=== PATIENT | male | born 1945 | race Caucasian/White ===

== ENCOUNTER → 2018-09-04 | Outpatient (REF) | payer MEDICARE, OTHER ==
[~2018-09-04] MED LIST: ALL DAY ALLG10 MG PO; AMOXICILLIN/CL875 MG OR; ASPIRIN EC LOW81 MG PO; CRESTOR20 MG PO; DIOVAN80 MG PO; LANTUS100 UNIT/M SC; LOVAZA1 GM PO; METOPROL TAR25 M1 PO; MULTIVITAMI1 PO; NEXIUM20 M1 PO; NIASPAN500 MG PO; PRISTIQ50 MG PO; TANZEUM50 MG SC; VICTOZA18 MG/3 ML SC; VITA D-1000 OR; VITAMIN D5000 UNIT PO
[2018-09-04 11:08] LABS: HEMATOCRIT 46.7 % (39.0-50.0); HEMOGLOBIN 15.5 g/dl (14.0-18.0); IMMATURE GRANULOCYTES 0.1 % (0.0-5.0); MEAN CELL VOLUME 89.8 fL CALC (80.0-100.0); MEAN CORPUSCULAR HGB 29.8 pG CALC (26.0-32.0); MEAN CORPUSCULAR HGB CONC 33.2 g/L CALC (32.0-36.0); NEUT# 2.45 thou/uL (1.82-7.42); RED BLOOD COUNT 5.2 mill/uL (4.70-6.10); RED CELL DISTRI WIDTH 13.4 % (11.5-15.5)
== END | disposition home or self-care (01) ==
LOC: LAB 10:22
PROVIDERS: ATTEND Internal Medicine Geriatric Medicine
DX: J20.9 Acute bronchitis, unspecified (principal)

== ENCOUNTER 2018-10-07 16:52 | Observation (INO) | payer MEDICARE, OTHER ==
[~2018-10-07] VITALS: Ht 182.9 cm; Wt 99.4 kg
--- NOTE | 2018-10-07 17:04 | NUR ---
PT TO ROOM VIA EMS
[2018-10-07 17:16] LABS: HEMATOCRIT 46.9 % (39.0-50.0); HEMOGLOBIN 15.5 g/dl (14.0-18.0); IMMATURE GRANULOCYTES 0.5 % (0.0-5.0); MEAN CELL VOLUME 88.8 fL CALC (80.0-100.0); MEAN CORPUSCULAR HGB 29.4 pG CALC (26.0-32.0); NEUT# 7.08 thou/uL (1.82-7.42); RED BLOOD COUNT 5.28 mill/uL (4.70-6.10); RED CELL DISTRI WIDTH 13.5 % (11.5-15.5)
[2018-10-07 17:36] LABS: ANION GAP 18 (6-22 (CALC)); BUN 30 mg/dL (8-23); BUN/CREATININE RATIO 17 (12-20 (CALC)); CARBON DIOXIDE 21 mmol/l (22-30); CHLORIDE 106 mmol/l (95-108); CREATININE 1.7 mg/dL (0.7-1.3); GFR 40 ML/MIN (>=60 (CALC)); GFR FOR AFR.AMER. 48 ML/MIN (>=60 (CALC)); POTASSIUM 4.4 mmol/l (3.5-5.1); SODIUM 141 mmol/l (137-146)
--- NOTE | 2018-10-07 17:41 | NUR ---
PT STATES HAS BEEN HAVING SOME COUGHING AND NOT FEELING GOOD
[2018-10-07] MEDS ORDERED: ALLOPURINOL100 MG PO (17:55)
[2018-10-07] MEDS ORDERED: CLOPIDOGREL75 MG PO (17:55)
[2018-10-07] MEDS ORDERED: VICTOZA18 MG/3 ML SC (17:56)
[2018-10-07] MEDS ORDERED: APIDRA100 UNIT/M SC (17:58)
--- NOTE | 2018-10-07 18:12 | NUR ---
DAUGHTER STATES THAT PT WAS SITTING IN CHAIR AND "PASSED OUT", PT ALSO STATES THAT HE WAS FEELING WEAK AND VOMITED AND HAD A "BOUT OF DIARRHEA". EYES ROLLED BACK FOR APPROX 5 SECONDS DAUGHTER STATES. AT THIS TIME PT STATES IS FEELING MUCH BETTER.
--- NOTE | 2018-10-07 18:25 | NUR ---
PT REPORT GIVEN TO MED SURG FOR CONTINUATION OF CARE.
--- NOTE | 2018-10-07 18:38 | NUR ---
PT TAKEN TO FLOOR PER STRETCHER, PT ALERT/ORIENTED X3.
[2018-10-07 18:55] VITALS: BP 151/72
--- NOTE | 2018-10-07 19:06 | NUR ---
RECEIVED REPORT FROM NURSE RUBIN, PATIENT TRANSPORTED VIA WHEELCHAIR, DX SYNCOPE, PATIENT SETTLED IN BED, EDUCATED CREDIT RISK MANAGER LIGHT SYSTEM.
--- NOTE | 2018-10-07 19:40 | NUR ---
PATIENT ALERT AND ORIENTED ABLE TO MAKE NEEDS KNOWN, DENIES PAIN OR DISCOMFORT ON TELE SR 97, WITH PRODUCTIVE COUGHT THICK YELLOW IN COLOR, LAST BM 10/07. WITH AN ONGOING IVF OF NS @ 1000CC/HR, ON LEFT FOREARM, CALL LIGHT AT REACH.
[2018-10-07 19:56] LABS: URINE BILIRUBIN - DIPSTICK NEGATIVE (NEGATIVE); URINE BLOOD DIPSTICK NEGATIVE (NEGATIVE); URINE COLOR YELLOW; URINE GLUCOSE - DIPSTICK NEGATIVE (NEGATIVE); URINE KETONE NEGATIVE (NEGATIVE); URINE LEUK ESTERASE NEGATIVE (NEGATIVE); URINE NITRITE - DIPSTICK NEGATIVE (Negative); URINE PH 5.5 (4.5-8.0); URINE PROTEIN - DIPSTICK TRACE mg/dL (NEG-TRACE); URINE SPECIFIC GRAVITY 1.015; URINE UROBILINOGEN - DIPSTICK 0.2 E.U./dL (0.2)
--- NOTE | 2018-10-07 20:52 | NUR ---
RECEIVED A PHONE CALL @ 2035 FROM [facility]) ABOUT CRITICALLY HIGH LACTIC ACID 2.1, CALLED DR. ROSARIO INFORMED ABOUT THE TREND, NO NEW ORDERS MADE AT THIS TIME.
--- NOTE | 2018-10-08 | NUR ---
PATIENT RESTING IN BED, NO DISCOMFORTS NOTED AT THIS TIME, ON TELE SR 98. CALL LIGHT WITHIN REACH.
[2018-10-08 00:25] VITALS: BP 140/70
[2018-10-08 04:30] VITALS: BP 132/75
[2018-10-08 05:31] LABS: HEMATOCRIT 41.5 % (39.0-50.0); HEMOGLOBIN 13.8 g/dl (14.0-18.0); IMMATURE GRANULOCYTES 0.2 % (0.0-5.0); MEAN CELL VOLUME 88.9 fL CALC (80.0-100.0); MEAN CORPUSCULAR HGB 29.6 pG CALC (26.0-32.0); MEAN CORPUSCULAR HGB CONC 33.3 g/L CALC (32.0-36.0); NEUT# 4.54 thou/uL (1.82-7.42); RED BLOOD COUNT 4.67 mill/uL (4.70-6.10); RED CELL DISTRI WIDTH 13.5 % (11.5-15.5)
[2018-10-08 06:04] LABS: ALBUMIN 3.7 g/dL (3.2-5.0); BILIRUBIN, TOTAL 0.7 mg/dL (0.0-1.4); CREATININE 1.6 mg/dL (0.7-1.3); POTASSIUM 4.2 mmol/l (3.5-5.1); TOTAL PROTEIN 6.6 g/dL (6.3-8.2)
--- NOTE | 2018-10-08 06:30 | NUR ---
PATIENT SENT TO RADIOLOGY FOR CXR 2V VIA WHEELCHAIR.
--- NOTE | 2018-10-08 06:50 | NUR ---
PATIENT BACK IN ROOM, SETTLED BACK IN BED.
--- NOTE | 2018-10-08 07:15 | NUR ---
REPORT RECEIVED FROM EXTRACTIONS TECHNOLOGIST; PT LAYING IN BED WITH HOB ELEVATED; APPEARS TO BE SLEEPING; RESP EVEN AND UNLABORED; WILL CONTINUE TO MONITOR.
--- NOTE | 2018-10-08 08:30 | NUR ---
DR ROSARIO AT BEDSIDE TO DISCUSS POC
[2018-10-08] MEDS ORDERED: LEVAQUIN750 MG PO (08:43)
--- NOTE | 2018-10-08 11:01 | NUR ---
PT SITTING UP IN BED, RESP EVEN AND UNLABORED; DRESSED READY TO GO HOME; DR ROSARIO AWARE OF UNFINISH D/C PROCESS; PT INFORM OF SUCH; STATES "I WILL JUST SIT HERE AND WAIT" VERY PLEASANT;
--- NOTE | 2018-10-08 12:14 | NUR ---
D/C INSTRUCTIONS GIVEN, PT VERBALIZE UNDERSTANDING; DECLINE W/C
--- NOTE | 2018-10-08 12:16 | NUR ---
Discharge instructions given. Patient verbalizes understanding of same. Discharged in stable condition via Ambulatory to Home with family. All belongings sent with pt.
== END 2018-10-08 12:16 | disposition home or self-care (01) ==
LOC: ED 16:52 → ED-I 17:05 → ED 17:05 → ED-I 17:50 → MS2 18:01 → ED 18:01 → MS2 18:01
PROVIDERS: Family Medicine; ADMIT Internal Medicine Geriatric Medicine; ATTEND Internal Medicine Geriatric Medicine
DX: E86.0 Dehydration (principal); J20.9 Acute bronchitis, unspecified; J44.0 Chronic obstructive pulmonary disease with (acute) lower respiratory infection; I12.9 Hypertensive chronic kidney disease with stage 1 through stage 4 chronic kidney disease, or unspecified chronic kidney disease; E11.22 Type 2 diabetes mellitus with diabetic chronic kidney disease; N18.9 Chronic kidney disease, unspecified; M19.90 Unspecified osteoarthritis, unspecified site; E11.69 Type 2 diabetes mellitus with other specified complication; E78.5 Hyperlipidemia, unspecified; I25.10 Atherosclerotic heart disease of native coronary artery without angina pectoris; E03.9 Hypothyroidism, unspecified; I25.2 Old myocardial infarction; Z79.4 Long term (current) use of insulin; Z95.1 Presence of aortocoronary bypass graft; R55 Syncope and collapse; R53.1 Weakness; R42 Dizziness and giddiness; R11.2 Nausea with vomiting, unspecified; R19.7 Diarrhea, unspecified

== ENCOUNTER 2024-01-05 15:12 | Observation (INO) | payer MEDICARE, OTHER ==
[~2024-01-05] VITALS: Ht 182.9 cm; Wt 88.1 kg
[2024-01-05] VITALS (21 sets, daily range): BP systolic 116–154; BP diastolic 66–88
[~2024-01-05 15:12] MED LIST changes: +ALLOPURINOL100 MG PO; +APIDRA100 UNIT/M SC; +CLOPIDOGREL75 MG PO; +LEVAQUIN750 MG PO
[2024-01-05 15:35] LABS: BASO% 0.4 % (0-3); EOS% 2.4 % (0-8); HEMATOCRIT 49.5 % (39.0-50.0); IMMATURE GRANULOCYTES 0.1 % (0.0-5.0); LYMPH% 10.1 % (15-41); MEAN CORPUSCULAR HGB 29.1 pG CALC (26.0-32.0); MEAN CORPUSCULAR HGB CONC 32.3 g/dL CAL (32.0-36.0); MONO% 11.2 % (2-13); NEUT# 7.51 thou/uL (1.82-7.42); NEUT% 75.8 % (42-76); RED BLOOD COUNT 5.5 mill/uL (4.70-6.10); RED CELL DISTRI WIDTH 12.9 % (11.5-15.5)
[2024-01-05 15:44] LABS: ALKALINE PHOSPHATASE 55 u/l (38-126); BUN 19 mg/dL (8-23); BUN/CREATININE RATIO 12 (12-20 (CALC)); CARBON DIOXIDE 24 mmol/l (22-30); CPK 53 u/l (55-170); CREATININE 1.6 mg/dL (0.7-1.3); ESTIMATED GFR 44 ML/MIN (>=90 (CALC)); SGOT/AST 37 u/l (19-48)
[2024-01-05 15:47] LABS: ANION GAP 10 (6-22 (CALC)); CHLORIDE 108 mmol/l (95-108); POTASSIUM 4.6 mmol/l (3.5-5.1); SODIUM 137 mmol/l (137-146)
[2024-01-05 15:48] LABS: TOTAL PROTEIN 7.8 g/dL (6.3-8.2)
[2024-01-05 15:49] LABS: BILIRUBIN, TOTAL 1.1 mg/dL (0.2-1.3)
[2024-01-05 16:40] LABS: URINE BILIRUBIN - DIPSTICK Negative (NEGATIVE); URINE BLOOD DIPSTICK Negative (NEGATIVE); URINE GLUCOSE - DIPSTICK >=1000 mg/dL (NEGATIVE); URINE KETONE Trace mg/dL (NEGATIVE); URINE LEUK ESTERASE Negative (NEGATIVE); URINE NITRITE - DIPSTICK Negative (Negative); URINE PROTEIN - DIPSTICK Trace mg/dL (NEG-TRACE); URINE SPECIFIC GRAVITY 1.015
[2024-01-05 16:43] LABS: URINE COLOR Yellow
[2024-01-05] MEDS ORDERED: SODIUM CHLORIDE 0.9% 1,000 ML IV ONE (17:10)
[2024-01-05] MEDS ORDERED: DOXYCYCLINE HYCLATE 100 MG in SODIUM CHLORIDE 0.9% 100 ML IV ONE (17:55)
[2024-01-05] MEDS ORDERED: SODIUM CHLORIDE 0.9% 1,000 ML IV PRN (18:10)
[2024-01-05] MEDS ORDERED: ACETAMINOPHEN 325 MG/TAB PO PRN (18:10)
[2024-01-05] MEDS ORDERED: MAGNESIUM HYDROXIDE 30 ML UDC PO PRN (18:10)
[2024-01-05] MEDS ORDERED: IPRATROPIUM-Albuterol 0.5MG-2.5MG/3 ML NEB SCH (19:00)
[2024-01-05] MEDS ORDERED: TRULICITY0.75 MG/0. (19:10)
[2024-01-05] MEDS ORDERED: ENOXAPARIN SODIUM 40 MG/0.4 ML SYR SC SCH (21:00)
[2024-01-05] MEDS ORDERED: INSULIN LISPRO 100 UNITS/ML ML SC SCH (21:00)
[2024-01-06 00:32] VITALS: BP 122/65
[2024-01-06 04:33] VITALS: BP 119/76
[2024-01-06 06:20] LABS: BASO% 0.6 % (0-3); EOS% 1.8 % (0-8); HEMATOCRIT 45.1 % (39.0-50.0); IMMATURE GRANULOCYTES 0.1 % (0.0-5.0); LYMPH% 20.3 % (15-41); MEAN CORPUSCULAR HGB 29.9 pG CALC (26.0-32.0); MEAN CORPUSCULAR HGB CONC 33.3 g/dL CAL (32.0-36.0); MONO% 18.1 % (2-13); NEUT# 4.05 thou/uL (1.82-7.42); NEUT% 59.1 % (42-76); RED BLOOD COUNT 5.01 mill/uL (4.70-6.10); RED CELL DISTRI WIDTH 12.9 % (11.5-15.5)
[2024-01-06 06:31] LABS: ALBUMIN 3.4 g/dL (3.2-5.0); BILIRUBIN, TOTAL 0.9 mg/dL (0.2-1.3); CHOLESTEROL HDL RATIO 4.2 (<4.4 (CALC)); CREATININE 1.3 mg/dL (0.7-1.3); MAGNESIUM 1.7 mg/dL (1.6-2.3); POTASSIUM 3.9 mmol/l (3.5-5.1); TOTAL PROTEIN 6.7 g/dL (6.3-8.2)
[2024-01-06 06:55] VITALS: BP 127/64
[2024-01-06] MEDS ORDERED: PANTOPRAZOLE SODIUM Sesquihydr 40 MG/TAB PO SCH (09:00)
[2024-01-06] MEDS ORDERED: ALLOPURINOL 100 MG/TAB PO SCH (09:00)
[2024-01-06] MEDS ORDERED: ESCITALOPRAM 10 MG/TAB PO SCH (09:00)
[2024-01-06] MEDS ORDERED: FLUTICASONE PROPIONATE (Nasal) 50MCG/SPRAY INH SCH (09:00)
[2024-01-06] MEDS ORDERED: AZITHROMYCIN 250 MG/TAB PO SCH (09:00)
[2024-01-06] MEDS ORDERED: INSULIN DETEMIR 100 UNITS/ML SC SCH (09:00)
[2024-01-06] MEDS ORDERED: METOPROLOL SUCCINATE 25 MG/TAB-TOPROL XL PO SCH (09:00)
[2024-01-06 11:02] VITALS: BP 128/74
[2024-01-06] MEDS ORDERED: AMOX/K CLAV875 M1 PO (12:31)
== END 2024-01-06 14:53 | disposition home or self-care (01) ==
LOC: ED 15:12 → ED-I 17:20 → ED 17:54 → MS2 17:55
PROVIDERS: Nurse Practitioner; ADMIT Student in an Organized Health Care Education/Training Program; ATTEND Student in an Organized Health Care Education/Training Program
DX: E86.0 Dehydration (principal); R91.8 Other nonspecific abnormal finding of lung field; R53.1 Weakness; N17.9 Acute kidney failure, unspecified; I12.9 Hypertensive chronic kidney disease with stage 1 through stage 4 chronic kidney disease, or unspecified chronic kidney disease; E11.22 Type 2 diabetes mellitus with diabetic chronic kidney disease; N18.9 Chronic kidney disease, unspecified; E11.69 Type 2 diabetes mellitus with other specified complication; E78.2 Mixed hyperlipidemia; I25.10 Atherosclerotic heart disease of native coronary artery without angina pectoris; E78.5 Hyperlipidemia, unspecified; I25.2 Old myocardial infarction; K21.9 Gastro-esophageal reflux disease without esophagitis; Z95.1 Presence of aortocoronary bypass graft; Z95.5 Presence of coronary angioplasty implant and graft; Z79.4 Long term (current) use of insulin
CPT/HCPCS: J1650

== ENCOUNTER 2024-02-23 10:37 | Emergency (ER) | payer MEDICARE, OTHER ==
[~2024-02-23] VITALS: Ht 182.9 cm; Wt 76.2 kg
[2024-02-23] VITALS (15 sets, daily range): BP systolic 130–160; BP diastolic 78–105
[~2024-02-23 10:37] MED LIST changes: +AMOX/K CLAV875 M1 PO; +TRULICITY0.75 MG/0.
[2024-02-23] MEDS ORDERED: ESCITALOPRAM OX10 MG PO (12:06)
[2024-02-23] MEDS ORDERED: FENOFIBRATE54 MG PO (12:08)
[2024-02-23] MEDS ORDERED: ASPIRINCHW 81MG PO (12:08)
[2024-02-23] MEDS ORDERED: PLAVIX75 MG PO (12:09)
[2024-02-23] MEDS ORDERED: HUMALOG100 UNIT/M SC (12:12)
[2024-02-23] MEDS ORDERED: TOUJEO SOL300 UNIT/M (12:13)
[2024-02-23 12:14] LABS: BASO% 0.6 % (0-3); EOS% 6.2 % (0-8); HEMATOCRIT 53.7 % (39.0-50.0); HEMOGLOBIN 17.5 g/dl (14.0-18.0); IMMATURE GRANULOCYTES 0.1 % (0.0-5.0); LYMPH% 28.4 % (15-41); MEAN CELL VOLUME 90.9 fL CALC (80.0-100.0); MEAN CORPUSCULAR HGB 29.6 pG CALC (26.0-32.0); MEAN CORPUSCULAR HGB CONC 32.6 g/dL CAL (32.0-36.0); MONO% 10.3 % (2-13); NEUT# 5.33 thou/uL (1.82-7.42); NEUT% 54.4 % (42-76); RED BLOOD COUNT 5.91 mill/uL (4.70-6.10); RED CELL DISTRI WIDTH 13.7 % (11.5-15.5)
[2024-02-23] MEDS ORDERED: EZETIMIBE10 MG (12:14)
[2024-02-23] MEDS ORDERED: FAMOTIDINE 10MG/ML 2ML SDV IV ONE (12:25)
[2024-02-23 12:30] LABS: ALBUMIN 4.9 g/dL (3.2-5.0); ALKALINE PHOSPHATASE 55 u/l (38-126); ANION GAP 15 (6-22 (CALC)); BUN 23 mg/dL (8-23); BUN/CREATININE RATIO 15 (12-20 (CALC)); CARBON DIOXIDE 27 mmol/l (22-30); CHLORIDE 106 mmol/l (95-108); CREATININE 1.5 mg/dL (0.7-1.3); ESTIMATED GFR 47 ML/MIN (>=90 (CALC)); LIPASE 307 u/l (23-300); POTASSIUM 4.1 mmol/l (3.5-5.1); SGOT/AST 34 u/l (19-48); SODIUM 144 mmol/l (137-146); TOTAL PROTEIN 10.1 g/dL (6.3-8.2)
[2024-02-23] MEDS ORDERED: SODIUM CHLORIDE 0.9% 1,000 ML IV ONE (13:50)
[2024-02-23] MEDS ORDERED: CARAFATE PO (15:07)
== END 2024-02-23 15:41 | disposition home or self-care (01) ==
LOC: ED 10:37
PROVIDERS: Emergency Medicine
DX: R10.13 Epigastric pain (principal); I10 Essential (primary) hypertension; E11.9 Type 2 diabetes mellitus without complications; I25.10 Atherosclerotic heart disease of native coronary artery without angina pectoris; Z95.1 Presence of aortocoronary bypass graft; Z95.5 Presence of coronary angioplasty implant and graft; K44.9 Diaphragmatic hernia without obstruction or gangrene; Z79.4 Long term (current) use of insulin
CPT/HCPCS: Q9967

== ENCOUNTER 2024-06-06 12:10 | Inpatient (IN) | payer MEDICARE, OTHER ==
[~2024-06-06 12:10] MED LIST changes: +ASPIRIN LOW DOS81 M1 PO; +ASPIRINCHW 81MG PO; +CARAFATE PO; +ESCITALOPRAM OX10 MG PO; +EZETIMIBE10 MG; +FENOFIBRATE54 MG PO; +HUMALOG100 UNIT/M SC; +PANTOPRAZOLE SO40 M1 PO; +PLAVIX75 MG PO; +TOUJEO SOL300 UNIT/M
[2024-06-06] MEDS ORDERED: SILDENAFIL (12:22)
[2024-06-10] MEDS ORDERED: SODIUM CHLORIDE 0.9% 1,000 ML IV ONE (09:53)
[2024-06-10] MEDS ORDERED: ceFAZolin Sodium 2 GM/VIAL SDV ONE (09:53)
[2024-06-10] MEDS ORDERED: SODIUM CHLORIDE 0.9% 0 ML IV ONE (09:53)
[2024-06-10] MEDS ORDERED: FAMOTIDINE 10MG/ML 2ML SDV IV ONE (09:53)
[2024-06-10] MEDS ORDERED: STERILE WATER FOR IRRIGATION 1,000 ML BTL IR ONE (09:57)
[2024-06-10] MEDS ORDERED: SODIUM CHLORIDE 1,000 ML BTL IR ONE (09:57)
[2024-06-10] MEDS ORDERED: LIDOcaine HCl 1% (Local Anesth.) 20 ML VIAL ONE (09:57)
== END 2024-06-10 10:15 | disposition home or self-care (01) | DRG 392 ==
LOC: OR 06-10 09:30 → MS2 06-10 09:38
PROVIDERS: ADMIT Surgery; ATTEND Surgery
DX: K44.9 Diaphragmatic hernia without obstruction or gangrene (principal); E11.9 Type 2 diabetes mellitus without complications; Z79.4 Long term (current) use of insulin; Z79.01 Long term (current) use of anticoagulants; Z53.09 Procedure and treatment not carried out because of other contraindication
CPT/HCPCS: J0690

== ENCOUNTER 2024-07-25 10:17 | Inpatient (IN) | payer MEDICARE, OTHER ==
[~2024-07-25] VITALS: Ht 188 cm; Wt 73.0 kg
[~2024-07-25 10:17] MED LIST changes: +SILDENAFIL
[2024-07-25] MEDS ORDERED: FAMOTIDINE 10MG/ML 2ML SDV IV ONE (10:19)
[2024-07-25] MEDS ORDERED: SODIUM CHLORIDE 0.9% 1,000 ML IV ONE ×3 (10:20→16:17)
[2024-07-25] MEDS ORDERED: ceFAZolin Sodium 2 GM/VIAL SDV ONE (10:20)
[2024-07-25] MEDS ORDERED: SODIUM CHLORIDE 0.9% 100 ML IV ONE (10:20)
[2024-07-25] MEDS ORDERED: LIDOcaine HCl 1% (Local Anesth.) 20 ML VIAL ONE (11:16)
[2024-07-25] MEDS ORDERED: SODIUM CHLORIDE 1,000 ML BTL IR ONE (11:16)
[2024-07-25] MEDS ORDERED: STERILE WATER FOR IRRIGATION 500 ML BTL IR ONE (11:16)
[2024-07-25] MEDS ORDERED: SODIUM CHLORIDE 3,000 ML BAG FOR IRRIGATION IR ONE ×2 (11:16→15:39)
[2024-07-25] MEDS ORDERED: SIMETHICONE 20 MG/0.3 ML PO PRN (13:10)
[2024-07-25] MEDS ORDERED: SODIUM CHLORIDE 0.9% 1,000 ML IV PRN (13:10)
[2024-07-25] MEDS ORDERED: HYDROmorphone HCL 2 MG/AMP IV PRN (13:10)
[2024-07-25] MEDS ORDERED: ONDANSETRON HCl 4 MG/2 ML SDV IV PRN (13:10)
[2024-07-25] MEDS ORDERED: DEXTROSE 250 ML IV PRN (13:15)
[2024-07-25] MEDS ORDERED: ROCURONIUM BROMIDE 10 MG/ML 5ML VIAL IV ONE (15:46)
[2024-07-25] MEDS ORDERED: LIDOCAINE HCL 2% 2ML SDV IV ONE (15:46)
[2024-07-25] MEDS ORDERED: ACETAMINOPHEN 1,000 MG/100 ML VIAL IV ONE (15:46)
[2024-07-25] MEDS ORDERED: ePHEDrine SULFATE 50 MG/ML AMP IV ONE (15:46)
[2024-07-25] MEDS ORDERED: MORPHINE SULFATE 4 MG/ML VIAL IV ONE (15:46)
[2024-07-25] MEDS ORDERED: PROPOFOL 200 MG/20 ML VIAL IV ONE (15:46)
[2024-07-25] MEDS ORDERED: SUGAMMADEX SODIUM 200 MG/2 ML SDV IV ONE (15:46)
[2024-07-25] MEDS ORDERED: SUCCINYLCHOLINE CHLORIDE 20 MG/ML 10ML VIAL IV ONE (15:46)
[2024-07-25] MEDS ORDERED: SODIUM CHLORIDE 0.9% 1,000 ML BAG IV ONE (15:46)
[2024-07-25] MEDS ORDERED: ONDANSETRON HCl 4 MG/2 ML SDV IV ONE (15:46)
--- NOTE | 2024-07-25 16:23 | NUR ---
PATIENT ARRIVED TO [place] FROM THE OR TO ROOM 277. PATIENT A&OX3. BREATHING UNLABORED ON 2L NC. IV IN RAC INFUSING FLUIDS PER EMAR;SITE CLEAN AND INTACT. SCD'S APPLIED. PERSONAL BELONGINGS PUT AWAY. BEDSIDE REPORT RECIEVED. PT EDUCATED RESPIRATORY SUPERVISOR LIGHT USE AND SAFETY PRECAUTIONS. BED IN LOWEST POSITION. CALL LIGHT WITHIN REACH. PT DENIES ANY PAIN OR N/D/V AT THIS TIME. PT UNDERSTANDS HE IS NPO TONIGHT. NO OTHER NEEDS AT THIS TIME. POC ONGOING.
[2024-07-25 16:30] VITALS: BP 149/75
[2024-07-25 16:45] VITALS: BP 152/74
[2024-07-25 17:00] VITALS: BP 151/75
[2024-07-25] MEDS ORDERED: INSULIN LISPRO 100 UNITS/ML ML SC SCH (17:00)
[2024-07-25 17:15] VITALS: BP 155/79
[2024-07-25 19:14] VITALS: BP 147/77
--- NOTE | 2024-07-25 20:24 | NUR ---
PATINT OBSERVED IN ROOM RESTING IN BED WATCHING TV. BEDSIDE ASSESSMENT COMPLETE. UNLABORED RESP. NO VISUAL SIGNS OF DISTRESS. PATIENT CAN MAKE NEEDS KNOWN, NONE NEEDEDE AT THIS TIME. ABDOMEN OBSERVED TO HAVE FIVE DERMABOND SITES, CLEAN AND INTACT. BED AT LOWEST POSITION. CALL LIGHT WITH IN REACH.
[2024-07-26] VITALS (7 sets, daily range): BP systolic 98–152; BP diastolic 51–83
--- NOTE | 2024-07-26 00:48 | NUR ---
PATIENT OBSERVED TO BE RESTING IN BED WITH EYES CLOSED. PATIENT CAN MAKE NEEDS KNOWN. NONE NEEDED AT THIS TIME. UNLABORED RESP, NO VISUAL SIGHS OF DISTRESS. BED AT LOWEST POSITION. CALL LIGHT WITH IN REACH.
--- NOTE | 2024-07-26 04:54 | NUR ---
PATIENT IN BED WITH EYES CLOSED. UNLABORED RESP, NO VISUAL SIGNS OF DISTRESS. BED AT LOWEST POSITION. CALL LIGHT WITH IN REACH.
[2024-07-26 06:04] LABS: BASO% 0.3 % (0-3); EOS% 4.7 % (0-8); HEMATOCRIT 39.2 % (39.0-50.0); HEMOGLOBIN 12.4 g/dl (14.0-18.0); IMMATURE GRANULOCYTES 0.2 % (0.0-5.0); LYMPH% 18.5 % (15-41); MEAN CELL VOLUME 93.6 fL CALC (80.0-100.0); MEAN CORPUSCULAR HGB 29.6 pG CALC (26.0-32.0); MEAN CORPUSCULAR HGB CONC 31.6 g/dL CAL (32.0-36.0); MONO% 11.4 % (2-13); NEUT# 5.74 thou/uL (1.82-7.42); NEUT% 64.9 % (42-76); RED BLOOD COUNT 4.19 mill/uL (4.70-6.10); RED CELL DISTRI WIDTH 13.1 % (11.5-15.5)
[2024-07-26 06:13] LABS: ALBUMIN 3.3 g/dL (3.2-5.0); CREATININE 1.3 mg/dL (0.7-1.3); TOTAL PROTEIN 6.5 g/dL (6.3-8.2)
[2024-07-26 06:20] LABS: BILIRUBIN, TOTAL 0.8 mg/dL (0.2-1.3); POTASSIUM 5.4 mmol/l (3.5-5.1)
--- NOTE | 2024-07-26 07:35 | NUR ---
PATIENT LYING IN BED WITH EYES CLOSED; AWAKE WITH VERBAL STIMULI. PATIENT A&OX3. BREATHING UNLABORED ON 2L NC. IV IN RAC INFUSING FLUIDS PER EMAR;SITE CLEAN AND INTACT. PT STATES TO HAVE SOME PAIN IN LEFT SIDE SURGERY AREA THAT RADIATES TO LEFT SHOULDER. INFORMED PT PAIN MEDICATION WILL BE BROUGHT WELL AN HEATING PAD FOR COMFORT MEASURES. PT VERBALIZED UNDERSTANDING AND DENIES ANY N/D/V AT THIS TIME. SCD'S ON AND ACTIVE. BED IN LOWEST POSITION. PERSONAL ITEMS WITHIN REACH WELL CALL LIGHT. POC ONGOING. NO OTHER NEEDS AT THIS TIME.
--- NOTE | 2024-07-26 12:06 | NUR ---
PATIENT UP IN RECLINER. BREATHING UNLABORED ON 2L NC. TELE INTACT. IV IN RAC INFUSING FLUIDS PER EMAR;SITE CLEAN AND INTACT. PT DENIES ANY PAIN AT THIS TIME. PERSONAL ITEMS WELL CALL LIGHT WITHIN REACH. ICENITIVE SPIROMETER AT BEDSIDE;PT EDUCATED ON USE BY RT. NO OTHER NEEDS AT THIS TIME. POC ONGOING.
--- NOTE | 2024-07-26 12:07 | NUR ---
patient ambulated with assistance to bathroom, then to recliner.
--- NOTE | 2024-07-26 16:19 | NUR ---
PATIENT LYING IN BED WITH EYES CLOSED RESTING. BREATHING UNLABORED ON 2L NC. TELE INTACT. IV IN RAC INFUSING FLUIDS PER EMAR;SITE CLEAN AND INTACT. NO SIGNS OF DISTRESS OR PAIN NOTED. PERSONAL ITEMS WITHIN REACH WELL CALL LIGHT. BED IN LOWEST POSITION. POC ONGOING. NO NEEDS AT THIS TIME.
--- NOTE | 2024-07-26 19:50 | NUR ---
PATIENT IN ROOM RESTING IN BED AWAKE. PATIENT CANMAKE NEEDS KNOWN. NONE NEEDED AT THIS TIME. BED SIDE ASSESSMENT COMPLETE. UNLABORED RESP. NO VISUAL SIGNS OF DISTRESS. IVF INFUSING PER EMAR ORDERS. NO COMPLAINTS OF PAIN AT THIS TIME. BED AT LOWEST POSITION. CALL LIGHT WITH IN REACH.
--- NOTE | 2024-07-27 00:44 | NUR ---
PATIENT OBSERVED IN BED WITH EYES CLOSED. O2 VIA NC AT 2L. UNLABORED RESP. NO VISUAL SIGNS OF DISTRESS. BED AT LOWEST POSITION. CALL LIGHT WITH IN REACH.
[2024-07-27 04:09] VITALS: BP 124/77
--- NOTE | 2024-07-27 04:46 | NUR ---
PATIENT OBSERVED TO BE RESTING IN BED WITH EYES CLOSED. UNLABORED RESP, NO VISUAL SIGNS OF DISTRESS. BED AT LOWEST POSITION CALL LIGHT WITH IN REACH.
[2024-07-27 05:52] LABS: BASO% 0.2 % (0-3); EOS% 6.4 % (0-8); HEMATOCRIT 37.8 % (39.0-50.0); HEMOGLOBIN 11.9 g/dl (14.0-18.0); IMMATURE GRANULOCYTES 0.1 % (0.0-5.0); LYMPH% 15.1 % (15-41); MEAN CORPUSCULAR HGB 29.9 pG CALC (26.0-32.0); MEAN CORPUSCULAR HGB CONC 31.5 g/dL CAL (32.0-36.0); MONO% 13.8 % (2-13); NEUT# 5.69 thou/uL (1.82-7.42); NEUT% 64.4 % (42-76); RED BLOOD COUNT 3.98 mill/uL (4.70-6.10)
[2024-07-27 05:59] LABS: ALBUMIN 3.2 g/dL (3.2-5.0); CREATININE 0.9 mg/dL (0.7-1.3); MAGNESIUM 1.5 mg/dL (1.6-2.3); TOTAL PROTEIN 6.1 g/dL (6.3-8.2)
[2024-07-27 06:07] LABS: BILIRUBIN, TOTAL 1.2 mg/dL (0.2-1.3)
[2024-07-27 06:27] VITALS: BP 152/79
--- NOTE | 2024-07-27 07:33 | NUR ---
PT IS FOUND RESTING COMFORTABLY AT THIS TIME. PT IS A&O X4; PT IS STABLE. NO COMPLAINTS OF PAIN AT THIS TIME. PT IS ABLE TO MAKE HIS NEEDS KNOWN. PLAN OF CARE WAS REVIEWED WITH THE PT; PT STATES NO FURTHER QUESTIONS. ALL NATIONAL PT SAFETY PRECAUTIONS IN PLACE.
[2024-07-27 10:24] VITALS: BP 143/73
[2024-07-27] MEDS ORDERED: MAGNESIUM SULFATE HEPTAHYDRATE 50 ML IV SCH (12:00)
--- NOTE | 2024-07-27 15:45 | NUR ---
PT'S CONDITION HAS IMPROVED. PT WAS HAVING MODERATE TO SEVERE PAIN AND WAS MEDICATED WITH DILAUDID. HE WAITED ABOUT 45 MINUTES AND WALKED WITH THIS RN AND HIS . TOLERATED WALKING WELL. PT IS A&O X4 AND STABLE. THIS RN WILL BE ENCOURAGING HIM TO EAT HIS DINNER BECAUSE HE HAS CHOSEN TO REMAIN ON A LIQUID DIET. I WILL UPDATE PT'S NOTES ACCORDINGLY. ALL NATIONAL PT SAFETY PRECAUTIONS IN PLACE.
[2024-07-27 15:53] VITALS: BP 135/70
[2024-07-27 19:27] VITALS: BP 169/96
--- NOTE | 2024-07-27 20:30 | NUR ---
PT IS IN ROOM RESTING WATCHING TV. PT IS AOX4. PT COMPLAINS OF PAIN IN HIS LOWER LEFT ABD. PT VITALS ARE STABLE WILL GT PT SOME PAIN MEDICATION. PT HAS NO OTHER COMPLAINTS AT THIS TIME. PT HAS CALL LIGHT IN REACH/
--- NOTE | 2024-07-28 00:10 | NUR ---
PT IS RESTING IN BED. PT VITALS ARE STABLE EQUAL RISE AND FALL OF CHEST. PT IS 80 NSR PER TELE MONITOR. PT HAS NO COMPLAINTS CALL LIGHT IN REACH
[2024-07-28 00:44] VITALS: BP 157/91
--- NOTE | 2024-07-28 04:00 | NUR ---
PT SLEEPING BREATHING EVENLY NO DISTRESS NOTED. CALL LIGHT WITHIN REACH. PLAN OF CARE ONGOING.
[2024-07-28 04:41] VITALS: BP 153/69
[2024-07-28 06:48] VITALS: BP 140/77
[2024-07-28 07:28] VITALS: BP 140/77
--- NOTE | 2024-07-28 07:33 | NUR ---
PATIENT LAYING IN BED . NO C/O PAIN. IV INTACT. ABD INCISIONS INTACT .PLEASENT.
--- NOTE | 2024-07-28 10:03 | NUR ---
DR VUONG AT BEDSIDE DISCUSSING PLAN OF CARE WITH PT AT THIS TIME.
[2024-07-28 10:47] VITALS: BP 149/88
--- NOTE | 2024-07-28 11:09 | NUR ---
REVIEWED DISCHARGE INSTRUCTIONS WITH PT. ANSWERED ANY QUESTIONS OR CONCERNS. REMOVED IV, REMOVED TELE MONITOR AND PLACED IT IN THE RETURN BIN AT NURSES STATION.
--- NOTE | 2024-07-28 11:11 | NUR ---
PT LEFT THE FLOOR VIA WHEELCHAIR TRANSPORT WITH BELONGINGS IN HAND.
== END 2024-07-28 11:13 | disposition home or self-care (01) | DRG 328 ==
LOC: ORM 10:17 → MS2 16:23
PROVIDERS: Nurse Practitioner Family; ADMIT Surgery; ATTEND Surgery
PROC: 0DV44ZZ Restriction of Esophagogastric Junction, Percutaneous Endoscopic Approach (ICD-10-PCS; principal; 2024-07-25)
PROC: 0BQT4ZZ Repair Diaphragm, Percutaneous Endoscopic Approach (ICD-10-PCS; 2024-07-25)
DX: K44.9 Diaphragmatic hernia without obstruction or gangrene (principal); E11.22 Type 2 diabetes mellitus with diabetic chronic kidney disease; N18.9 Chronic kidney disease, unspecified; I25.10 Atherosclerotic heart disease of native coronary artery without angina pectoris; K21.9 Gastro-esophageal reflux disease without esophagitis; E11.69 Type 2 diabetes mellitus with other specified complication; E78.2 Mixed hyperlipidemia; C44.209 Unspecified malignant neoplasm of skin of left ear and external auricular canal; Z79.82 Long term (current) use of aspirin; Z79.4 Long term (current) use of insulin; Z95.1 Presence of aortocoronary bypass graft; Z79.02 Long term (current) use of antithrombotics/antiplatelets
CPT/HCPCS: J0131; J0690; J1171; J2405; J3475